=== PATIENT | male | born 1975 | race Caucasian/White ===

== ENCOUNTER 2020-04-28 19:49 | Emergency (ER) | payer BC, OTHER ==
[~2020-04-28] VITALS: Ht 182.9 cm; Wt 111.1 kg
[2020-04-28 21:31] VITALS: BP 127/89
== END 2020-04-28 21:32 | disposition home or self-care (01) ==
LOC: ER 19:49
DX: S61.215A Laceration without foreign body of left ring finger without damage to nail, initial encounter (principal); S61.213A Laceration without foreign body of left middle finger without damage to nail, initial encounter; Z92.89 Personal history of other medical treatment; W26.8XXA Contact with other sharp object(s), not elsewhere classified, initial encounter; Y93.89 Activity, other specified; Y92.89 Other specified places as the place of occurrence of the external cause; Y99.8 Other external cause status